=== PATIENT | male | born 1970 | race African-American/Black ===

== ENCOUNTER 2023-10-14 06:13 | Emergency (ER) | payer OTHER ==
[2023-10-14 06:21] VITALS: TEMP 98.5
[2023-10-14 06:50] LABS: BASO % 0.4 % (0-2.0); EOS % 0.4 % (0-4.5); HEMATOCRIT 45.3 % (35.4-49); HEMOGLOBIN 15.2 GM/dL (11.7-16.9); LYMPH % 14.4 % (8-40); MCH 26.9 pg (25.7-33.7); MCHC 33.6 g/dl (32.0-35.9); MEAN PLT VOLUME 8.1 fl (7.5-11.1); MONO % 4.5 % (3.8-10.2); NEUT % 80.3 % (42.8-82.8); PLATELET COUNT 271 10^3/uL (134-434); RBC 5.66 M/mm3 (4.00-5.60); RDW 15.8 % (11.9-15.9); WHITE BLOOD COUNT 14.6 K/mm3 (4.0-10.0)
[2023-10-14 06:51] VITALS: BMI 36.6
[2023-10-14 06:54] LABS: INR 1.04 (0.83-1.09); PROTHROMBIN TIME (PATIENT) 11.9 SEC (9.7-13.0)
[2023-10-14 06:55] LABS: CHLORIDE 107 mmol/L (98-107); POTASSIUM 3.7 mmol/L (3.5-5.1); SODIUM 136 mmol/L (136-145)
[2023-10-14 06:57] LABS: ACTIVATED PTT 30.9 SECONDS (25.2-36.5); CALCIUM 9.2 mg/dL (8.5-10.1)
[2023-10-14 06:58] LABS: ALBUMIN 3.8 g/dl (3.4-5.0); ANION GAP 11 mmol/L (4-13); CO2 18 mmol/L (21-32)
[2023-10-14 06:59] LABS: BLOOD UREA NITROGEN 8.5 mg/dL (7-18); GLUCOSE,RANDOM 182 mg/dL (74-106)
[2023-10-14 07:01] LABS: CREATININE 1.6 mg/dL (0.55-1.3); SGOT/AST 17 U/L (15-37); SGPT/ALT 23 U/L (13-61)
[2023-10-14 07:02] LABS: CHOLESTEROL 178 mg/dL (50-200)
[2023-10-14 07:04] LABS: BILIRUBIN,TOTAL 0.4 mg/dL (0.2-1); LDL CHOLESTEROL (ONLY SJRH) 114 mg/dL (5-100)
[2023-10-14 07:05] LABS: ALK PHOS 121 U/L (45-117); HDL CHOLESTEROL 42 mg/dL (40-60)
[2023-10-14 07:14] VITALS: BP 136/94; PULSE 123; RESP 19
[2023-10-14] MEDS: SODIUM CHLORIDE 1,000 ML IV SCH (07:15)
[2023-10-14] MEDS ORDERED: ASPIRIN 81 MG CHEWABLE TABLETS ONE (09:29)
[2023-10-14] MEDS: ASPIRIN 81 MG CHEWABLE TABLETS PO ONE (09:33)
== END 2023-10-14 09:40 | disposition short-term general hospital (02) ==
LOC: JER 06:13
DX: I63.9 Cerebral infarction, unspecified (principal); R00.0 Tachycardia, unspecified; Z20.822 Contact with and (suspected) exposure to COVID-19
CPT/HCPCS: 0241U-QW; 36415; 70450-TC; 70496-TC; 70498-TC; 71045-TC-FY; 72125-TC; 80053; 80061; 80307; 82550; 82553; 82962; 83036; 84484; 85025; 85610; 85730; 93005; 93010; 99291